=== PATIENT | female | born 2000 | race African-American/Black ===

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

== ENCOUNTER 2020-08-21 00:28 | Emergency (ER) | payer OTHER ==
--- NOTE | 2020-08-21 01:57 | ER Document Report ---
ED Medical Screen (RME) - General Chief Complaint: Weakness Stated Complaint: FATIGUE,NAUSEA Time Seen by Provider: 08/21/20 01:54 Notes: 20-year-old female comes by EMS for chief complaint of an episode that happened when she was taking a shower tonight where she suddenly felt weak, like she had no energy, felt nauseated, and felt like her heart was beating strangely. She states she felt vaguely short of breath and felt like her heart was going fast. She states she became concerned and called EMS. She states she still feels weak but denies any other complaints including headache, chest pain, dizziness, dental pain, vomiting, fever/chills, sick exposures. Covid 19 screen by EMS negative. Denies any medications or diagnosed medical history. Denies recreational drugs or alcohol. TRAVEL OUTSIDE OF THE [place] IN LAST 30 DAYS: No - Related Data Allergies/Adverse Reactions: No Known Allergies Allergy (Verified 09/19/16 10:40) Home Medications: CONTROL Past Medical History - Social History Frequency of alcohol use: None Drug Abuse: None Pulmonary Medical History: Reports: Hx Bronchitis, Hx Pneumonia Renal/ Medical History: Denies: Hx Peritoneal Dialysis Past Surgical History: Reports: Hx Inguinal Hernia - Immunizations Immunizations up to date: Yes Hx Diphtheria, Pertussis, Tetanus Vaccination: Yes Physical Exam - Vital signs Vitals: Temp Pulse Resp BP Pulse Ox 97.7 F 87 16 126/70 H 98 08/21/20 00:35 08/21/20 00:35 08/21/20 00:35 08/21/20 00:35 08/21/20 00:35 - Respiratory Respiratory status: No respiratory distress Breath sounds: Normal - Cardiovascular Rhythm: Regular. No: Tachycardia Heart sounds: Normal auscultation, S1 appreciated, S2 appreciated Course - Re-evaluation Re-evalutation: I have greeted and performed a rapid initial assessment of this patient. A comprehensive ED assessment and evaluation of the patient, analysis of test results and completion of the medical decision making process will be conducted by additional ED providers. - Vital Signs Vital signs: Temp Pulse Resp BP Pulse Ox 97.7 F 87 16 126/70 H 98 08/21/20 00:35 08/21/20 00:35 08/21/20 00:35 08/21/20 00:35 08/21/20 00:35
--- NOTE | 2020-08-21 03:55 | RADIOLOGY REPORT (SQ) ---
EXAM DESCRIPTION: XR CHEST 2 VIEWS COMPLETED DATE/TME: 08/21/2020 03:07 CLINICAL HISTORY: 20 years, Female, shortness of breath COMPARISON: 07/20/2014 chest NUMBER OF VIEWS: 2 TECHNIQUE: 2 view chest LIMITATIONS: None. FINDINGS: Heart size normal. Lungs clear. No pneumothorax IMPRESSION: Negative chest copyright 2010 [employer]- All Rights Reserved
[2020-08-21 05:01] LABS: APPEARANCE,URINE CLOUDY; BILIRUBIN,URINE NEGATIVE (NEGATIVE); COLOR,URINE YELLOW; GLUCOSE, URINE NEGATIVE (NEGATIVE); KETONES,URINE NEGATIVE (NEGATIVE); LEUKOCYTE ESTERASE,URINE LARGE (NEGATIVE); NITRITE,URINE NEGATIVE (NEGATIVE); PROTEIN,URINE 30 mg/dL (NEGATIVE); URINE SPECIFIC GRAVITY 1.025; UROBILINOGEN,URINE NEGATIVE mg/dL (<2.0)
[2020-08-21 06:19] LABS: ABSOLUTE BASOPHILS # (AUTO) 0.1 10^3/uL (0.0-0.2); ABSOLUTE EOSINOPHILS # (AUTO) 0.1 10^3/uL (0.0-0.6); ABSOLUTE LYMPHOCYTES (AUTO) 2.2 10^3/uL (0.5-4.7); ABSOLUTE MONOCYTES (AUTO) 0.4 10^3/uL (0.1-1.4); ABSOLUTE NEUT (AUTO) 3.6 10^3/uL (1.7-8.2); BASOPHILS % (AUTO) 0.9 % (0-2); EOSINOPHILS % (AUTO) 1.1 % (0-6); HEMATOCRIT 40.3 % (36.0-47.0); HEMOGLOBIN 13.3 g/dL (12.0-15.5); MEAN CORPUSCULAR HEMOGLOBIN 27.4 pg (27.0-33.4); MEAN CORPUSCULAR HGB CONC 33.1 g/dL (32.0-36.0); MEAN CORPUSCULAR VOLUME 83 fl (80-97); MONOCYTES % (AUTO) 6.9 % (3-13); PLATELET COUNT 323 10^3/uL (150-450); RED BLOOD COUNT 4.86 10^6/uL (3.72-5.28); RED CELL DISTRIBUTION WIDTH 13.5 % (11.5-14.0); SEGMENTED NEUTROPHILS % (AUTO) 57.1 % (42-78); TOTAL CELLS COUNTED % (AUTO) 100 %; WHITE BLOOD COUNT 6.4 10^3/uL (4.0-10.5)
[2020-08-21 06:34] LABS: ALBUMIN 4.4 g/dL (3.5-5.0); ALKALINE PHOSPHATASE 65 U/L (38-126); ANION GAP 9 (5-19); ASPARTATE AMINO TRANSFERASE 36 U/L (14-36); BILIRUBIN,DIRECT 0.2 mg/dL (0.0-0.4); BILIRUBIN,TOTAL 0.4 mg/dL (0.2-1.3); BLOOD UREA NITROGEN 12 mg/dL (7-20); CALCIUM 9.6 mg/dL (8.4-10.2); CARBON DIOXIDE 27 mmol/L (22-30); CHLORIDE 102 mmol/L (98-107); GLUCOSE 92 mg/dL (75-110); POTASSIUM 4.1 mmol/L (3.6-5.0); TOTAL PROTEIN 7.9 g/dL (6.3-8.2)
--- NOTE | 2020-08-21 07:26 | EKG REPORT ---
SEVERITY:- OTHERWISE NORMAL ECG - SINUS ARRHYTHMIA, RATE [id number] : Confirmed by: Leonardo St MD 21-Aug-2020 07:25:16
[2020-08-21 08:02] VITALS: BP 121/69
[2020-08-21] MEDS ORDERED: CEPHALEXIN 500 MG CAPSULE PO ONE (10:22)
--- NOTE | 2020-08-21 10:27 | ER Document Report ---
ED General - General Chief Complaint: Weakness Stated Complaint: FATIGUE,NAUSEA Time Seen by Provider: 08/21/20 01:54 Primary Care Provider: SIMON TENA PA [NO LOCAL MD] - Follow up as needed Mode of Arrival: Ambulatory Information source: Patient Notes: Patient states she has been having headache off and on since yesterday although headache is presently gone. Patient states that she felt weak in the shower last night around 10 PM. Patient states that last night she started to have some nausea and palpitations when she felt weak. Patient reports she has had occasional dysuria symptoms. Patient presently denies any palpitations or feelings of weakness at this time. Patient denies any significant medical history. Patient denies any cough or cold symptoms. TRAVEL OUTSIDE OF THE [place] IN LAST 30 DAYS: No - HPI Onset: Yesterday Onset/Duration: Better, Gone Associated symptoms: Headache, Weakness, Other - Palpitations. 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 denies: Dizziness Respiratory: No symptoms reported. denies: Cough, Short of breath Gastrointestinal: Nausea. denies: Abdominal pain, Vomiting Genitourinary: No symptoms reported. denies: Flank pain Female Genitourinary: No symptoms reported. denies: Musculoskeletal: No symptoms reported. denies: Back pain, Leg swelling Skin: No symptoms reported Hematologic/Lymphatic: No symptoms reported Neurological/Psychological: Headaches Physical Exam - Vital signs Vitals: Temp Pulse Resp BP Pulse Ox 97.7 F 87 16 126/70 H 98 08/21/20 00:35 08/21/20 00:35 08/21/20 00:35 08/21/20 00:35 08/21/20 00:35 - Notes Notes: PHYSICAL EXAMINATION: GENERAL: Well-appearing and in no acute distress. HEAD: Atraumatic, normocephalic. EYES: sclera anicteric, conjunctiva are normal. ENT: nares patent. Moist mucous membranes. No serous effusion NECK: Normal range of motion, supple without lymphadenopathy LUNGS: CTAB and equal. No wheezes rales or rhonchi. HEART: Regular rate and rhythm without murmurs ABDOMEN: Soft, nontender. EXTREMITIES: Normal range of motion, no pitting edema. No cyanosis. BACK: No midline tenderness, no step-off or deformity. No CVA tenderness NEUROLOGICAL: Cranial nerves grossly intact. Normal speech. PSYCH: Normal mood, normal affect. SKIN: Warm, Dry, normal turgor, no rashes or lesions noted Course - Re-evaluation Re-evalutation: 08/21/20 10:24 Patient presently denies any symptoms at this time. Patient reports having nausea and headache off and on since yesterday. Patient presently without any headache. Patient reports occasional dysuria. No abdominal pain, flank pain or fever. Patient nontoxic in appearance. Patient does have a sinus arrhythmia noted on EKG although this has been present on EKG from 5 years prior. Patient without any chest pain or dyspnea. Patient encouraged to follow-up with a travelift operator on outpatient basis. The patient presents with headache without signs of EMERGENCY ROOM DOCTOR bleed, stroke, infection, or other serious etiology. The patient is neurologically intact. Given the extremely low risk of these diagnoses further testing and evaluation for these possibilities does not appear to be indicated at this time. The patient has been instructed to return if the symptoms worsen or change in any way. - Vital Signs Vital signs: Temp Pulse Resp BP Pulse Ox 98.5 F 88 16 121/69 100 08/21/20 07:56 08/21/20 07:56 08/21/20 07:56 08/21/20 07:56 08/21/20 07:56 - Laboratory Results Result Diagrams: 08/21/20 05:53 08/21/20 05:53 Laboratory Results Interpreted: 08/21/20 04:44 Urine Protein 30 H Ur Leukocyte Esterase LARGE H 08/21/20 10:23 Labs- All tests 24 hr 08/21/20 08/21/20 08/21/20 04:44 05:53 05:53 WBC 6.4 RBC 4.86 Hgb 13.3 Hct 40.3 MCV 83 MCH 27.4 MCHC 33.1 RDW 13.5 Plt Count 323 Lymph % (Auto) 34.0 [place] % (Auto) 6.9 Eos % (Auto) 1.1 Baso % (Auto) 0.9 Absolute Neuts (auto) 3.6 Absolute Lymphs (auto) 2.2 Absolute Monos (auto) 0.4 Absolute Eos (auto) 0.1 Absolute Basos (auto) 0.1 Seg Neutrophils % 57.1 Sodium 137.6 Potassium 4.1 Chloride 102 Carbon Dioxide 27 Anion Gap 9 BUN 12 Creatinine 0.67 Est GFR ( Amer) > 60 Est GFR (MDRD) Non-Af > 60 Glucose 92 Calcium 9.6 Total Bilirubin 0.4 Direct Bilirubin 0.2 Neonat Total Bilirubin Not Reportable Neonat Direct Bilirubin Not Reportable Neonat Indirect Bili Not Reportable AST 36 ALT 17 Alkaline Phosphatase 65 Total Protein 7.9 Albumin 4.4 TSH Serum HCG, Qual Urine Color YELLOW Urine Appearance CLOUDY Urine pH 6.0 Ur Specific [place] 1.025 Urine Protein 30 H Urine Glucose (UA) NEGATIVE Urine Ketones NEGATIVE Urine Blood NEGATIVE Urine Nitrite NEGATIVE Urine Bilirubin NEGATIVE Urine Urobilinogen NEGATIVE Ur Leukocyte Esterase LARGE H Urine WBC (Auto) 20 Urine RBC (Auto) 12 Urine Bacteria (Auto) 3+ Squamous Epi Cells Auto 12 Urine Mucus (Auto) MOD Urine Ascorbic Acid NEGATIVE 08/21/20 08/21/20 05:53 05:53 WBC RBC Hgb Hct MCV MCH MCHC RDW Plt Count Lymph % (Auto) [place] % (Auto) Eos % (Auto) Baso % (Auto) Absolute Neuts (auto) Absolute Lymphs (auto) Absolute Monos (auto) Absolute Eos (auto) Absolute Basos (auto) Seg Neutrophils % Sodium Potassium Chloride Carbon Dioxide Anion Gap BUN Creatinine Est GFR ( Amer) Est GFR (MDRD) Non-Af Glucose Calcium Total Bilirubin Direct Bilirubin Neonat Total Bilirubin Neonat Direct Bilirubin Neonat Indirect Bili AST ALT Alkaline Phosphatase Total Protein Albumin TSH 1.68 Serum HCG, Qual NEGATIVE Urine Color Urine Appearance Urine pH Ur Specific [place] Urine Protein Urine Glucose (UA) Urine Ketones Urine Blood Urine Nitrite Urine Bilirubin Urine Urobilinogen Ur Leukocyte Esterase Urine WBC (Auto) Urine RBC (Auto) Urine Bacteria (Auto) Squamous Epi Cells Auto Urine Mucus (Auto) Urine Ascorbic Acid Critical Laboratory Results Reviewed: No Critical Results - Radiology Results Critical Radiology Results Reviewed: No Critical Results - EKG Interpretation by Me EKG shows normal: Sinus rhythm Rhythm: Arrthymia When compared to previous EKG there are: No significant change Additional EKG results interpreted by me: 08/21/20 10:24 Patient with sinus arrhythmia rate of 71, QTc 431, no significant change when compared to prior EKG, no acute ischemic changes Discharge - Discharge Clinical Impression: Palpitations, Nausea UTI (urinary tract infection) Qualifiers: Urinary tract infection type: site unspecified Hematuria presence: without hematuria Qualified Code(s): N39.0 - Urinary tract infection, site not specified Condition: Stable Disposition: HOME, SELF-CARE Instructions: Cephalexin ([facility]), Headache ([facility]), Palpitations (Irregular or Rapid Heartrate) ([facility]), Urinary Tract Infection ([facility]) Additional Instructions: Return immediately for any new or worsening symptoms Followup with your primary care provider, call tomorrow to make a followup appointment Follow-up with cardiology for recheck, call today to make a follow-up a ppointment Prescriptions: Cephalexin Monohydrate [Keflex 500 mg Capsule] 500 mg PO BID 5 Days #10 capsule Promethazine HCl [Phenergan 25 mg Tablet] 25 mg PO Q6H PRN #10 tablet PRN Reason: Forms: Return to Work Referrals: SIMON TENA PA [NO LOCAL MD] - Follow up as needed
== END 2020-08-21 11:00 | disposition home or self-care (01) ==
LOC: ER 00:28
DX: N39.0 Urinary tract infection, site not specified (principal); R51.9 Headache, unspecified; R53.1 Weakness; R11.0 Nausea; I49.9 Cardiac arrhythmia, unspecified; R00.2 Palpitations; R30.0 Dysuria; Z79.3 Long term (current) use of hormonal contraceptives
CPT/HCPCS: 36415; 71046; 80053; 81001; 84443; 84703; 85025; 87086; 93005; 93010; 99285